=== PATIENT | female | born 1930 | race Caucasian/White ===

== ENCOUNTER 2017-06-27 14:35 | Emergency (ER) | payer OTHER, MEDICAID ==
--- NOTE | 2017-06-27 15:08 | EDM.PDOC ---
ED HPI GENERAL MEDICAL PROBLEM - General Chief Complaint: Lower Extremity Injury/Pain Stated Complaint: FALL YESTERDAY-R FOOT INJURY Time Seen by Provider: 06/27/17 14:43 Source of Information: Reports: Patient, Family (daughter) History Limitations: Reports: No Limitations - History of Present Illness INITIAL COMMENTS - FREE TEXT/NARRATIVE: 87-year-old female presents with her daughter for evaluation and treatment of injuries sustained from a fall. Patient reportedly fell yesterday. She was down for approximately half an hour. She does have a life alert button but was not wearing it at the time. Reportedly the patient crawled towards the door was able to hit the door with a broom. The flight reservations manager then came and found her. Reportedly the patient was wearing cotton socks yesterday when she slipped and fell in the bathroom. She hit her left baptism on the edge of the bathroom. She has a laceration to her left baptism. She is currently complaining of pain to her right foot, ankle and knee. Pain is greatest at the right great toe. Has been taking Tylenol and Motrin. She denies any headaches, nausea, vomiting, neck pain, vision changes, lightheadedness, dizziness, abdominal pain or chest pain. Patient's daughter is present and provides some additional history. Reports that she does have an onset of dementia. However, she is concerned that her mother asked her this morning what happened to her foot and why this was causing her pain. She did not call the fall yesterday. The daughter also reports that approximately 3 hours after the fall she developed a nosebleed which dripped for some time. Daughter reports that she does not frequently get nosebleeds. Patient is not on any blood thinners. Location: Reports: Face, Lower Extremity, Right Right Feet Pain Score (Numeric/FACES): 8 - Related Data Allergies Allergy/AdvReac Type Severity Reaction Status Date / Time clindamycin Allergy Hives Verified 06/27/17 14:44 Penicillins Allergy Anaphylactic Verified 06/27/17 14:44 Shock vancomycin Allergy Itching Verified 06/27/17 14:44 Home Meds: Home Meds Acetaminophen [Tylenol] 325 mg PO DAILY 06/27/17 [History] Alendronate [Fosamax] 70 mg PO DAILY 06/27/17 [History] Calcium Carbonate [Calcium] 600 mg PO DAILY 06/27/17 [History] Donepezil HCl 10 mg PO DAILY 06/27/17 [History] Past Medical History HEENT History: Reports: Impaired Vision Other HEENT History: wears glasses 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: - Past Surgical History GI Surgical History: Reports: Cholecystectomy Female Surgical History: Reports: Hysterectomy Musculoskeletal Surgical History: Reports: Knee Replacement, Other (See Below) Other Musculoskeletal Surgeries/Procedures:: 2 knee replacements Social & Family History - Family History Family Medical History: Noncontributory - Tobacco Use Smoking Status *Q: Current Every Day Smoker Years of Tobacco use: 60 Packs/Tins Daily: 0.1 - Caffeine Use Caffeine Use: Reports: Coffee - Recreational Drug Use Recreational Drug Use: No Review of Systems - Review of Systems Review Of Systems: See Below Eyes: Denies: Vision Change Nose: Reports: Epistaxis (3 hours post fall) Respiratory: Denies: Shortness of Breath Cardiovascular: Denies: Chest Pain, Lightheadedness GI/Abdominal: Denies: Abdominal Pain, Nausea, Vomiting Musculoskeletal: Denies: Neck Pain Skin: Reports: Bruising (right great toe), Wound (left ) Neurological: Reports: Difficulty Walking (due to right foot, ankle and knee pain). Denies: Headache, Syncope ED EXAM, GENERAL - Physical Exam Exam: See Below Exam Limited By: No Limitations General Appearance: Alert, WD/WN, No Apparent Distress Eye Exam: Bilateral Eye: EOMI, Normal Inspection, PERRL Ears: Normal External Exam Nose: Normal Inspection Throat/Mouth: Normal Inspection, Normal Lips, Normal Voice, No Airway Compromise Head: Atraumatic, Normocephalic Neck: Normal Inspection, Supple, Non-Tender, Full Range of Motion Respiratory/Chest: No Respiratory Distress, Lungs Clear, Normal Breath Sounds, Chest Non-Tender Cardiovascular: Normal Peripheral Pulses, Regular Rate, Rhythm, No Murmur Peripheral Pulses: 2+: Radial (L), Radial (R), Posterior Tibial (L), Posterior Tibial (R), Dorsalis Pedis (L), Dorsalis Pedis (R) GI/Abdominal: Normal Bowel Sounds, Soft, Non-Tender Extremities: Normal Capillary Refill, Other (swelling to the right foot and ankle; tenderness to palpation to the right great toe and dorsal right foot, medial side) Neurological: Alert, Oriented, Memory Loss Recent Events Psychiatric: Normal Affect, Normal Mood Skin Exam: Warm, Dry, Normal Color, Ecchymosis (right great toe at the IP joint) Course - Vital Signs Last Recorded V/S: Last Vital Signs Temp 36.3 C 06/27/17 14:39 Pulse 90 06/27/17 14:39 Resp 18 06/27/17 14:39 BP 158/75 H 06/27/17 14:39 Pulse Ox 99 06/27/17 14:39 - Radiology Interpretation Free Text/Narrative:: CT cervical spine Technique: Multiple axial sections through the cervical spine were obtained. Reconstructed coronal and sagittal images were obtained. Comparison: No previous cervical spine imaging. Findings: Mild disc space narrowing is noted at C4-C5. Moderate to severe disc space narrowing is noted at C5-C6 with moderate disc space narrowing is noted at C6-C7. Scattered anterior endplate osteophytes are seen. Scattered degenerative apophyseal change is noted. Scattered areas of mild to moderate neural foraminal stenosis is seen. No central canal stenosis is noted. Vertebral bodies and posterior arches are intact with no fracture being seen. No abnormal subluxation is seen on the reconstructed sagittal images. Impression: 1. Scattered degenerative change. 2. No acute fracture or abnormal subluxation is seen. Head CT Technique: Multiple axial sections through the brain were obtained. Intravenous contrast was not utilized. Comparison: No previous intracranial imaging. Findings: Ventricles along with basal cisterns and sulci over the convexities are mildly prominent. Mild areas of diminished density are noted within the periventricular white matter compatible with small vessel ischemic demyelination change. Incidental atherosclerotic calcification is seen within the carotid siphon. No intracranial hemorrhage is seen. No midline shift or mass effect is seen. No acute calvarial abnormality is seen. Impression: 1. Mild senescent change. 2. Nothing acute is seen on noncontrast head CT study. CT facial bones Technique: Multiple axial sections through the facial bones were obtained. Reconstructed coronal and sagittal images were reviewed. Findings: Mild mucosal thickening is seen within the ethmoid and within the right maxillary sinus. Right and left globes are symmetric. No facial bone fracture is seen. Impression: 1. Mild sinus disease most likely chronic. 2. No acute fracture is seen on CT study of the facial bones. Right ankle: 4 views of the right ankle were obtained. Severe degenerative change noted at the tibiotalar joint. Multiple bony densities are seen around the ankle which appear well-corticated and are compatible with old injury. Small plantar spur is seen. Subtalar joint is not well seen and likely due to degenerative change as well. Osteopenia is noted. No definite acute bony abnormality is seen. Soft tissue swelling is present. Impression: 1. Severe degenerative change and evidence of old injury. Osteopenia. Soft tissue swelling. 2. No definite acute bony abnormality is noted. Right foot: 4 views of the right foot were obtained. Degenerative change is again noted within the tibiotalar joint and subtalar joint. Small plantar spur is again seen. Degenerative change is noted within the first MTP joint. Bony structures are osteopenic. Nothing acute is appreciated on right foot study. Impression: 1. Findings as noted above. Nothing acute is seen. Right knee: 4 views of the right knee were obtained. Knee prosthesis is seen. Bony structures are osteopenic. Vascular calcification is present. No acute fracture or other bony abnormality is seen. Impression: 1. Knee prosthesis and other incidental findings. 2. No acute abnormality is identified on right knee exam. - Re-Assessments/Exams Free Text/Narrative Re-Assessment/Exam: 06/27/17 16:32 I reviewed the head CT results with the patient and daughter. No acute findings at this time. Reviewed the x-rays with Dr. Davis. Will await read from radiology due to significant degenerative change making evaluation more difficult. Patient has declined anything for pain thus far. 06/27/17 17:35 Reviewed the x-ray results with the patient and her daughter. Patient will be discharged home at this time. Discharge instructions as documented. Departure - Departure Time of Disposition: 17:35 Disposition: Home, Self-Care 01 Condition: Fair Clinical Impression: Ecchymosis, Injury, foot - Discharge Information Instructions: Contusion, Walking Boot Referrals: Pb Marquez MD [Primary Care Provider] - Sylvain Garg MD [Physician] - Forms: ED Department Discharge Additional Instructions: Wear the walking boot and use the walker. Ice the area 3 or 4 times a day for 10-15 minutes. [id number] Tylenol or Motrin as needed for pain relief. Follow up with either your primary care provider or orthopedics within [address] Cortez. Please call [phone] Cortez in orthopedics. Please return to the ER if your symptoms change or worsen.
--- NOTE | 2017-06-27 15:58 | CT ---
Head CT Technique: Multiple axial sections through the brain were obtained. Intravenous contrast was not utilized. Comparison: No previous intracranial imaging. Findings: Ventricles along with basal cisterns and sulci over the convexities are mildly prominent. Mild areas of diminished density are noted within the periventricular white matter compatible with small vessel ischemic demyelination change. Incidental atherosclerotic calcification is seen within the carotid siphon. No intracranial hemorrhage is seen. No midline shift or mass effect is seen. No acute calvarial abnormality is seen. Impression: 1. Mild senescent change. 2. Nothing acute is seen on noncontrast head CT study. Diagnostic code #2
--- NOTE | 2017-06-27 15:58 | CT ---
CT cervical spine Technique: Multiple axial sections through the cervical spine were obtained. Reconstructed coronal and sagittal images were obtained. Comparison: No previous cervical spine imaging. Findings: Mild disc space narrowing is noted at C4-C5. Moderate to severe disc space narrowing is noted at C5-C6 with moderate disc space narrowing is noted at C6-C7. Scattered anterior endplate osteophytes are seen. Scattered degenerative apophyseal change is noted. Scattered areas of mild to moderate neural foraminal stenosis is seen. No central canal stenosis is noted. Vertebral bodies and posterior arches are intact with no fracture being seen. No abnormal subluxation is seen on the reconstructed sagittal images. Impression: 1. Scattered degenerative change. 2. No acute fracture or abnormal subluxation is seen. Diagnostic code #2
--- NOTE | 2017-06-27 16:00 | CT ---
CT facial bones Technique: Multiple axial sections through the facial bones were obtained. Reconstructed coronal and sagittal images were reviewed. Findings: Mild mucosal thickening is seen within the ethmoid and within the right maxillary sinus. Right and left globes are symmetric. No facial bone fracture is seen. Impression: 1. Mild sinus disease most likely chronic. 2. No acute fracture is seen on CT study of the facial bones. Diagnostic code #1
--- NOTE | 2017-06-27 17:27 | CR ---
Right foot: 4 views of the right foot were obtained. Degenerative change is again noted within the tibiotalar joint and subtalar joint. Small plantar spur is again seen. Degenerative change is noted within the first MTP joint. Bony structures are osteopenic. Nothing acute is appreciated on right foot study. Impression: 1. Findings as noted above. Nothing acute is seen. Diagnostic code #2
--- NOTE | 2017-06-27 17:27 | CR ---
Right ankle: 4 views of the right ankle were obtained. Severe degenerative change noted at the tibiotalar joint. Multiple bony densities are seen around the ankle which appear well-corticated and are compatible with old injury. Small plantar spur is seen. Subtalar joint is not well seen and likely due to degenerative change as well. Osteopenia is noted. No definite acute bony abnormality is seen. Soft tissue swelling is present. Impression: 1. Severe degenerative change and evidence of old injury. Osteopenia. Soft tissue swelling. 2. No definite acute bony abnormality is noted. Diagnostic code #3
--- NOTE | 2017-06-27 17:27 | CR ---
Right knee: 4 views of the right knee were obtained. Knee prosthesis is seen. Bony structures are osteopenic. Vascular calcification is present. No acute fracture or other bony abnormality is seen. Impression: 1. Knee prosthesis and other incidental findings. 2. No acute abnormality is identified on right knee exam. Diagnostic code #2
== END 2017-06-27 17:56 | disposition home or self-care (01) ==
LOC: JD.ED 14:35
DX: S01.81XA Laceration without foreign body of other part of head, initial encounter (principal); S90.31XA Contusion of right foot, initial encounter; F17.210 Nicotine dependence, cigarettes, uncomplicated; Z79.899 Other long term (current) drug therapy; Z88.0 Allergy status to penicillin; Z88.1 Allergy status to other antibiotic agents; W01.198A Fall on same level from slipping, tripping and stumbling with subsequent striking against other object, initial encounter; Y92.89 Other specified places as the place of occurrence of the external cause
CPT/HCPCS: 70450; 70450-26; 70486; 70486-26; 72125; 72125-26; 73564-26-RT; 73564-RT; 73610-26-RT; 73610-RT; 73630-26-RT; 73630-RT; 99283; 99284-25

== ENCOUNTER 2017-12-04 17:47 | Emergency (ER) | payer MEDICARE, MEDICAID ==
--- NOTE | 2017-12-04 18:18 | EDM.PDOC ---
ED HPI GENERAL MEDICAL PROBLEM - General Chief Complaint: Head Injury Stated Complaint: FELL-FACE LAC Time Seen by Provider: 12/04/17 18:17 Source of Information: Reports: Patient History Limitations: Reports: No Limitations - History of Present Illness INITIAL COMMENTS - FREE TEXT/NARRATIVE: Anisha is a pleasant 87yo female brought in by her daughter ambulatory with walker this evening after a fall in her bedroom at home. She has alzheimer's, very forgetful according to her daughter. Patient tells me she was straightening her bed/comforter and her foot got stuck, she fell striking her head on the window ledge. She has a hematoma to her left forehead and small skin tear to her left cheek. She denies LOC or other associated injuries, no neck or back pain, CP, palpitations, SOB, cough, LBP. She forgets to tell me that her left shoulder is hurting her until I have her move her extremities. Shoulder is painful to anterior side with forward raise. Denies numbness/ tingling or pain to elbow, hand. No pain to other extremities. Not on blood thinners. Daughter reports she fell a week or so ago at home also, she forgets to use her walker most of the time, has a shuffling gait. Daughter has concerns for her mothers safety at her apartment that she will forget to turn off the oven or something dangerous. She has talked to her about assisted living such as [facility] but mother has refused. According to daughter dementia is progressing. PCP is NASRIN Rivas with [facility]. Onset: Today Location: Reports: Head, Face Context: Reports: Trauma (fall at home) Associated Symptoms: Denies: Chest Pain, Cough, Diaphoresis, Fever/Chills, Headaches (denies KELLEY for me but told daughter and nurse she had a headache.), Nausea/Vomiting, Seizure, Shortness of Breath Left Face Pain Score (Numeric/FACES): 3 - Related Data Allergies Allergy/AdvReac Type Severity Reaction Status Date / Time clindamycin Allergy Hives Verified 12/04/17 17:58 Penicillins Allergy Anaphylactic Verified 12/04/17 17:58 Shock vancomycin Allergy Itching Verified 12/04/17 17:58 Home Meds: Home Meds Acetaminophen [Tylenol] 325 mg PO DAILY 06/27/17 [History] Donepezil HCl 10 mg PO DAILY 06/27/17 [History] Calcium Citrate/Vitamin D3 [Calcium Citrate - Vit D Caplet] 250 - 315 mg PO DAILY 12/04/17 [History] Memantine HCl [Namenda] 5 mg PO DAILY 12/04/17 [History] Past Medical History HEENT History: Reports: Impaired Vision Other HEENT History: wears glasses Cardiovascular History: Reports: High Cholesterol Other Cardiovascular History: meds D/C'd Respiratory History: Reports: COPD 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 - Infectious Disease History Infectious Disease History: Reports: Chicken Pox, Measles - Past Surgical History GI Surgical History: Reports: Cholecystectomy Female Surgical History: Reports: Hysterectomy Musculoskeletal Surgical History: Reports: Knee Replacement, Other (See Below) Other Musculoskeletal Surgeries/Procedures:: 2 knee replacements Social & Family History - Family History Family Medical History: Noncontributory - Tobacco Use Smoking Status *Q: Current Every Day Smoker Years of Tobacco use: 70 Packs/Tins Daily: 0.5 Second Hand Smoke Exposure: No - Caffeine Use Caffeine Use: Reports: Coffee - Recreational Drug Use Recreational Drug Use: No ED ROS GENERAL - Review of Systems Review Of Systems: See Below Constitutional: Reports: No Symptoms HEENT: Reports: Other (hematoma to lt forehead) Respiratory: Reports: No Symptoms. Denies: Shortness of Breath, Cough Cardiovascular: Reports: No Symptoms. Denies: Chest Pain, Palpitations GI/Abdominal: Reports: No Symptoms Musculoskeletal: Reports: Shoulder Pain (left), Other (hematoma, 3cm in diameter above left eyebrow, superficial abrasion to lt cheek) Skin: Reports: Other (superficial abrasion, skin tear to lt cheek) Neurological: Reports: Confusion (dementia- baseline according to daughter, no worsening s/p fall). Denies: Dizziness, Numbness, Tingling Psychiatric: Reports: No Symptoms ED EXAM, HEAD INJURY - Physical Exam Exam: See Below Exam Limited By: No Limitations General Appearance: Alert, WD/WN, No Apparent Distress Head: Atraumatic, Normocephalic Nexus Criteria: No: Posterior, Midline Cervical Tenderness, Evidence of Intoxication, Altered Level of Consciousness, Focal Neurological Deficit, Painful Distraction Injuries Eyes: Bilateral Eye: EOMI, PERRL Ears: Normal External Exam, Normal Canal, Hearing Grossly Normal, Normal TMs Nose: Normal Inspection Throat/Mouth: Normal Inspection, Normal Teeth, Normal Gums, Normal Oropharynx, Normal Voice, No Airway Compromise Neck: Non-Tender, Full Range of Motion, Normal Alignment. No: Paraspinous Muscle Tender, Spinous Processes Tender, Stiff Neck, Tenderness Respiratory: No Respiratory Distress, Lungs Clear, Normal Breath Sounds Cardiovascular: Regular Rate, Rhythm, No Edema GI/Abdominal Exam: Normal Bowel Sounds, Soft (Female) Exam: Deferred Rectal (Female) Exam: Deferred Back Exam: Normal Inspection. 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 II-XII nml As Tested, No Motor/Sensory Deficits, Alert, Normal Mood/Affect, Oriented x 3 DTR: 2+: Patella (R), Patella (L) Skin: Normal Color, Warm/Dry, Other (hematoma to left forehead, superficial abrasion to lt cheek) - [place] Coma Score Best Eye Response ([place]): (4) Open Spontaneously Best Verbal Response ([place]): (5) Oriented Best Motor Response ([place]): (6) Obeys Commands Course - Vital Signs Last Recorded V/S: Last Vital Signs Temp 97.6 F 12/04/17 18:00 Pulse 102 H 12/04/17 18:00 Resp 16 12/04/17 18:00 BP 158/69 H 12/04/17 18:00 Pulse Ox 92 L 12/04/17 18:00 - Orders/Labs/Meds Orders: Active Orders 24 hr Category Date Time Status Shoulder Comp Lt [CR] Stat Exams 12/04/17 18:37 Taken - Radiology Interpretation CT Results Date: 12/04/17 (CT report with 1.senescent changes as noted above. 2.Minimal sinus findings which are incidental. 3. Soft tissue hematoma within the left frontal scalp. 4. No acute intracranial abnormality is seen. ) - Re-Assessments/Exams Free Text/Narrative Re-Assessment/Exam: 12/04/17 19:21 Patient doing well. Awaiting report on shoulder xray, head CT negative. Departure - Departure Time of Disposition: 19:50 Disposition: Home, Self-Care 01 Condition: Good Clinical Impression: Hematoma, Skin tear Fall Qualifiers: Encounter type: initial encounter Qualified Code(s): W19.XXXA - Unspecified fall, initial encounter Shoulder pain, left Qualifiers: Chronicity: acute Qualified Code(s): M25.512 - Pain in left shoulder - Discharge Information Instructions: Skin Tear Care, [id number], Shoulder Range of Motion Exercises , Shoulder Pain, [id number], Facial or Scalp Contusion, [id number], Head Injury, Adult, [id number] Referrals: Eun Reed, [employer] [Primary Care Provider] - Forms: ED Department Discharge Additional Instructions: Head CT was normal, xray of shoulder was also normal. Please walk with walker at all times. Caution with quick movements. Tylenol or ibuprofen every 4-6 hours if needed for pain/discomfort. Wash face, abrasion to left cheek with soap and water daily, antibiotic ointment to the abrasion. If you become dizzy, lightheaded, confused, numbness/tingling, other concerns return to ER for further evaluation. Falls seem to be more frequent for you; consider Physical Therapy for strengthening and balance- talk with your PCP, NASRIN Rivas about this. May also be worthwhile to consider assisted living facility for the very near future as this would be a safer living situation for you. Again, please discuss this with your PCP, NASRIN Rivas at follow up visit. Recommend follow up with [facility] in 5-7 days for recheck, sooner if needed for other questions or concerns. - My Orders Last 24 Hours: My Active Orders 12/04/17 18:37 Shoulder Comp Lt [CR] Stat - Assessment/Plan Last 24 Hours: My Active Orders 12/04/17 18:37 Shoulder Comp Lt [CR] Stat
--- NOTE | 2017-12-04 19:13 | CT ---
Head CT Technique: Multiple axial sections through the brain were obtained. Intravenous contrast was not utilized. Comparison: Previous head CT study of 06/27/17. Findings: Ventricles along with basal cisterns and sulci over the convexities are mildly prominent. Mild diminished areas of decreased density are seen within the periventricular white matter. This is felt compatible with stable small vessel ischemic demyelination change. No other abnormal parenchymal densities are seen. No evidence of intracranial hemorrhage. No midline shift or mass effect is seen. Soft tissue hematoma is seen within the left frontal scalp. Minimal mucosal thickening is seen at the junction of the maxillary and ethmoid sinus on the left side. No acute calvarial abnormality is seen. Impression: 1. Senescent change as noted above. 2. Minimal sinus findings which are incidental. 3. Soft tissue hematoma within the left frontal scalp. 4. No acute intracranial abnormality is seen. Diagnostic code #3
--- NOTE | 2017-12-07 07:30 | CR ---
Left shoulder: Three views of the left shoulder were obtained. Comparison: No prior shoulder exam. Soft tissue calcifications are seen most likely within the rotator cuff from calcific tendinitis. Minimal inferior spurring is seen within the acromioclavicular joint. Glenohumeral joint shows minimal degenerative change. No acute fracture or dislocation is seen. Several old healed left sided rib fractures are noted. Impression: 1. Findings as noted above. Nothing acute is seen on three-view left shoulder study. Diagnostic code #2
== END 2017-12-04 20:05 | disposition home or self-care (01) ==
LOC: JD.ED 17:47
DX: S01.412A Laceration without foreign body of left cheek and temporomandibular area, initial encounter (principal); S00.03XA Contusion of scalp, initial encounter; M25.512 Pain in left shoulder; E78.00 Pure hypercholesterolemia, unspecified; J44.9 Chronic obstructive pulmonary disease, unspecified; E11.9 Type 2 diabetes mellitus without complications; G30.9 Alzheimer's disease, unspecified; F02.80 Dementia in other diseases classified elsewhere, unspecified severity, without behavioral disturbance, psychotic disturbance, mood disturbance, and anxiety; F17.210 Nicotine dependence, cigarettes, uncomplicated; Z88.8 Allergy status to other drugs, medicaments and biological substances; Z88.1 Allergy status to other antibiotic agents; Z88.0 Allergy status to penicillin; Z79.899 Other long term (current) drug therapy; W19.XXXA Unspecified fall, initial encounter; Y92.003 Bedroom of unspecified non-institutional (private) residence as the place of occurrence of the external cause
CPT/HCPCS: 70450; 70450-26; 73030-26-LT; 73030-LT; 99284; 99284-25